=== PATIENT | male | born 1975 | race Two or more races ===

== ENCOUNTER 2021-01-11 19:16 | Emergency (ER) | payer SELFPAY ==
[~2021-01-11] VITALS: Ht 170.2 cm; Wt 113.4 kg
--- NOTE | 2021-01-11 20:10 | NUR ---
Dr. Cano at bedside for MSE.
[2021-01-11] MEDS ORDERED: KETOROLAC TROMETHAMINE 30 MG INJ IM ONE (20:15)
[2021-01-11] MEDS ORDERED: ONDANSETRON ODT 4 MG TAB.RAPDIS SL ONE (20:15)
[2021-01-11] MEDS ORDERED: KETOROLAC TROMETHAMINE 30 MG INJ ONE (20:29)
[2021-01-11] MEDS ORDERED: ONDANSETRON ODT 4 MG TAB.RAPDIS ONE (20:29)
[2021-01-11] MEDS ORDERED: LIDO30AD10 TD (21:43)
[2021-01-11] MEDS ORDERED: HYDR-3980 PO ×2 (21:43→21:47)
[2021-01-11] MEDS ORDERED: IBUP-1955 PO (21:43)
[2021-01-11] MEDS ORDERED: ONDA4TAB5 PO (21:43)
[2021-01-11] MEDS ORDERED: HYDROCODONE/APAP 10-325 MG TABLET PO ONE (21:45)
[2021-01-11] MEDS ORDERED: LIDOCAINE 5% PATCH TD ONE ×2 (21:45→21:46)
[2021-01-11] MEDS ORDERED: HYDROCODONE/APAP 10-325 MG TABLET ONE (21:46)
--- NOTE | 2021-01-11 21:51 | NUR ---
Patient discharged to home in stable condition. Written and verbal after care instructions given. Patient verbalizes understanding of instructions. Stressed follow up or return to ER for worsening s/s. Patient out of ER with steady gait, no acute signs of distress, VSS, all belongings taken, provided with copies of lab and Xray results.
[2021-01-11 21:52] VITALS: BP 150/75
== END 2021-01-11 21:53 | disposition home or self-care (01) ==
LOC: ER 19:20
DX: S20.212A Contusion of left front wall of thorax, initial encounter (principal); V43.52XA Car driver injured in collision with other type car in traffic accident, initial encounter; W22.11XA Striking against or struck by driver side automobile airbag, initial encounter; Y92.414 Local residential or business street as the place of occurrence of the external cause; R03.0 Elevated blood-pressure reading, without diagnosis of hypertension
CPT/HCPCS: 71101; 96372; 99284; J1885; A4663; Q0162